=== PATIENT | male | born 1970 | race Caucasian/White ===

== ENCOUNTER 2024-01-28 15:49 | Outpatient (REF) | payer SELFPAY ==
[2024-01-28 17:35] LABS: MANUAL DIFF FLAG NO
[2024-01-28 17:47] LABS: Basophils Absolute Auto 0.1 X10*3/uL (0.0-0.2); Basophils Percent Auto 0.9 % (0-2); Eosinophils Absolute Auto 0.1 X10*3/uL (0.0-0.4); Eosinophils Percent Auto 0.7 % (0-4); Hematocrit 32.4 % (42.0-52.0); Hemoglobin 9.9 g/dl (14.0-18.0); Imm Gran Abs Auto 0.02 X10*3/uL (0.00-0.03); Imm Gran Pct Auto 0.3 % (0.0-0.4); Lymphocytes Absolute Auto 1.5 X10*3/uL (1.2-4.9); Lymphocytes Percent Auto 21.6 % (20-40); Mean Corpuscular HGB Conc 30.6 g/dl (31.0-36.0); Mean Corpuscular Hemoglobin 24.9 pg (27.0-33.0); Mean Corpuscular Volume 81.4 fL (80.0-98.0); Mean Platelet Volume 10.2 fL (9.4-12.4); Monocytes Absolute Auto 0.5 X10*3/uL (0.1-1.2); Neutrophils Absolute Auto 4.7 x10*3/uL (2.0-8.3); Neutrophils Percent Auto 69.5 % (45-73); Platelet Count 287 X10*3/uL (160-400); Red Blood Count 3.98 X10*6/uL (4.60-5.80); Red Cell Distribution Width 21.7 % (11.0-16.0); White Blood Count 6.7 X10*3/uL (4.8-10.8)
[2024-01-28 18:27] LABS: Alanine Aminotransferase 23 U/L (0-40); Albumin Level 3.5 g/dL (3.5-5.0); Alkaline Phosphatase 233 U/L (39-117); Anion Gap 11 (12-20); Aspartate Amino Transferase 64 U/L (5-37); Bilirubin Total 0.6 mg/dL (0.0-1.0); Blood Urea Nitrogen 8 mg/dL (9-16); Calcium 8.7 mg/dL (8.4-10.2); Carbon Dioxide 23 mmol/L (22-29); Chloride 107 mmol/L (96-108); Estimated Glomerular Filt Rate > 60; Glucose Random 97 mg/dL (60-115); Potassium 3.9 mmol/L (3.3-5.1); Sodium 137 mmol/L (135-145); Total Protein 8.3 g/dL (6.5-8.0)
[2024-01-29 05:43] LABS: Hepatitis A Antibody IgG Nonreactive (Nonreactive); ~Hepatitis A Antibody IgG 0.54 S/CO (0.00-0.99)
[2024-01-29 05:44] LABS: HBsAGNum1 0.42 S/CO (0.00-0.99); Hepatitis B Surface Antigen Negative (Negative); ~HepC Num1 0.26 S/CO (0.00-0.79); ~Hepatitis B Surface Antibody NONREACTIVE (Nonreactive); ~Hepatitis C Antibody Nonreactive (Nonreactive)
== END 2024-01-28 15:50 | disposition home or self-care (01) ==
LOC: HO.HHCL 15:49
PROVIDERS: Visit Provider Internal Medicine Geriatric Medicine
DX: D50.8 Other iron deficiency anemias (principal); K70.30 Alcoholic cirrhosis of liver without ascites
CPT/HCPCS: 36415; 80053; 85025; 86706; 86708; 86803; 87340

== ENCOUNTER 2024-01-29 12:14 | Outpatient (REF) | payer MEDICAID, SELFPAY ==
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
== END 2024-01-29 12:15 | disposition home or self-care (01) ==
LOC: HO.HHCX 12:14
PROVIDERS: Visit Provider Internal Medicine Geriatric Medicine
DX: S22.41XA Multiple fractures of ribs, right side, initial encounter for closed fracture (principal)
CPT/HCPCS: 71046

== ENCOUNTER 2024-03-20 10:53 | Outpatient (REF) | payer MEDICAID, SELFPAY ==
[2024-03-20 11:45] LABS: MANUAL DIFF FLAG NO
[2024-03-20 12:05] LABS: Basophils Absolute Auto 0.1 X10*3/uL (0.0-0.2); Basophils Percent Auto 0.7 % (0-2); Eosinophils Absolute Auto 0.1 X10*3/uL (0.0-0.4); Eosinophils Percent Auto 1.7 % (0-4); Hematocrit 33.3 % (42.0-52.0); Hemoglobin 10.2 g/dl (14.0-18.0); Imm Gran Abs Auto 0.03 X10*3/uL (0.00-0.03); Imm Gran Pct Auto 0.4 % (0.0-0.4); Lymphocytes Absolute Auto 1.3 X10*3/uL (1.2-4.9); Lymphocytes Percent Auto 18.7 % (20-40); Mean Corpuscular HGB Conc 30.6 g/dl (31.0-36.0); Mean Corpuscular Hemoglobin 24.5 pg (27.0-33.0); Mean Corpuscular Volume 79.9 fL (80.0-98.0); Mean Platelet Volume 12.1 fL (9.4-12.4); Monocytes Absolute Auto 0.4 X10*3/uL (0.1-1.2); Monocytes Percent Auto 6.3 % (2-11); Neutrophils Percent Auto 72.2 % (45-73); Platelet Count 231 X10*3/uL (160-400); Red Blood Count 4.17 X10*6/uL (4.60-5.80); Red Cell Distribution Width 18.5 % (11.0-16.0); White Blood Count 6.9 X10*3/uL (4.8-10.8)
--- OUTSIDE RECORDS SUMMARY | 2024-03-20 12:55 | XMS_ITS | Encounter Summary ---
Author Organization [facility] Address [address] [place] [address] Care Team Providers Care Costume Maker Name Role Phone Pcp, No Primary Care Provider Unavailabl e Encounter Details Date Type Department Care Team (Late st Contact Info) Description 03/16/2024 Scanned Document [facility] [address] [place] [place] [address] [place] [phone] Iliana MorochoDODSON, [place] [address] [place] [address] Social History Tobacco Use Types Packs/Day Years Used Date Smoking Tobacco: Never Smokeless Tobacco: Never Alcohol Use Standard Drinks/Week Comments Yes 6 (1 standard drink = 0.6 oz pur e alcohol) [facility] Utilities Answer Date Recorded In the past 12 months has [employer], gas, oil, or water [employer] threatened to shut off services in your home? No 12/17/2023 AUDIT-C Answer Date Recorded Q1: How often do you have a drink containing alcohol? 4 or more times a week 12/18/2023 Q2: How many drinks containi ng alcohol do you have on a typical day when you are drinking? 5 or 6 Q3: How often do you have si x or more drinks on one occasion? Daily or almost daily 12/18/2023 Hunger Vital Sign Answer Date Recorded Within the past 12 months, y ou worried that your food would run out before you got the money to buy more. Never true 12/17/19 24 Within the past 12 months, t he food you bought just didn't last and you didn't have money to get more. Never true 12/17/2023 PRAPARE - Transportation Answer Date Re corded In the past 12 months, has l ack of transportation kept you from medical appointments or from getting medications? No 11/26 In the past 12 months, has l ack of transportation kept you from meetings, work, or from getting things needed for daily living? No 12/17/2023 Housing Stability Vital Sign Answer Omari e Recorded In the last 12 months, was t here a time when you were not able to pay the mortgage or rent on time? No 12/17/2023 In the last 12 months, how many places have you lived? 1 12/17/2023 In the last 12 months, was t here a time when you did not have a steady place to sleep or slept in a m[facility]p (including now)? No 12/17/2023 Sex and Gender Information Value Date Recorded Sex Assigned at Male 12/16/2023 1:43 AM EDT Gender Identity Male 12/16/2023 1:43 AM EDT Sexual Orientation Heterosexual (straight) 12/15 1:43 AM EDT documented as of this encounter Plan of Treatment Not on file documented as of this encounter Visit Diagnoses Not on filedocumented in this encounter Care Teams Costume Maker Relationship Specialty Start Date End Date Pcp, No PCP - General General Medicine 12/26/23 documented as of this encounter
--- OUTSIDE RECORDS SUMMARY | 2024-03-20 12:56 | XMS_ITS | Encounter Summary ---
Author Organization [employer] Address [address] [place] [address] [address] [place] [address] Care Team Providers Care Making Line Worker Name Role Phone Name, Napoleon PALUMBO Primary Care Provider [phone] Encounter Details Date Type Department Care Team (Latest Contact Info) Description 02/27/2024 Travel Social History Tobacco Use Types Packs/Day Years Used Date Smoking Tobacco: Never Assessed Sex and Gender Information Value Date Recorded Sex Assigned at Male 01/28/2024 1:24 PM EST Legal Sex Male 1:21 PM EST Gender Identity Male 01/28/2024 1:24 PM EST Sexual Orientation Straight 01/28/2024 1: 24 PM EST documented as of this encounter Plan of Treatment Upcoming Encounters Date Type Department Care Team (Late st Contact Info) Description 03/23/2024 1:00 PM EST Office Visit [facility] PEDS [address] [place] [address] Arden Zambrano MD [address] [place] [phone] 06/10/2024 9:30 AM EDT Office Visit [facility] MEDICINE [address] [place] [phone] NameNapoleon MD [address] [place] [phone] 07/29/2024 10:00 AM EDT Immunization [facility] [address] [place] [phone] documented as of this encounter Visit Diagnoses Not on filedocumented in this encounter Care Teams Making Line Worker Relationship Specialty Start Date End Date NameNapoleon MD [address] [place] [phone] PCP - General Internal Medicine 01/28/24 documented as of this encounter
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
--- OUTSIDE RECORDS SUMMARY | 2024-03-20 12:56 | XMS_ITS | Encounter Summary ---
Author Organization [employer] Address [address] [facility] [address] [place] [address] Care Team Providers Care Horse Show Manager Name Role Phone Name, Napoleon PALUMBO Primary Care Provider [phone] Encounter Details Date Type Department Care Team (Late st Contact Info) Description 02/27/2024 10:00 AM EST Immunization [facility] MEDICINE [address] [place] [phone] Lanny Umanzor LPN Encounter for immunization Social History Tobacco Use Types Packs/Day Years Used Date Smoking Tobacco: Never Assessed Sex and Gender Information Value Date Recorded Sex Assigned at Male 01/28/2024 1:24 PM EST Legal Sex Male 1:21 PM EST Gender Identity Male 01/28/2024 1:24 PM EST Sexual Orientation Straight 01/28/2024 1: 24 PM EST documented as of this encounter Progress Notes * Lanny Umanzor LPN - 02/27/2024 10:00 AM EST Subjective Patient ID: Eligio Poole is a 53 y.o. male who presents here for 2nd, of 3 dose series, Engerix, Hepatitis B, Vaccine. Patient history and self attestation indicate no contraindication to vaccination. Pt advised of possible side effects of vaccine including fever, headache and fatigue and advisedto stay for 15 minutes monitoring post-vaccine. Pt states understanding and agrees to vaccination. Pt here for PCV 20, pneumococcal conjugate, vaccine. Pt reporting and record indicate no contraindications to vaccination. Pt advised that they could experience pain/redness/swelling @ injection sitewith a potential to experience head ache, loss of appetite, fever, joint pain, chills following vaccination. Pt states understanding and agrees to vaccination. documented in this encounter Plan of Treatment Upcoming Encounters Date Type Department Care Team (Late st Contact Info) Description 03/23/2024 1:00 PM EST Office Visit [facility] MED & PEDS [address] [place] [address] Arden Zambrano MD [address] [place] [phone] 06/10/2024 9:30 AM EDT Office Visit [address] [address] Name, MD Napoleon [address] [place] [phone] 07/29/2024 10:00 AM EDT Immunization [address] [address] documented as of this encounter Visit Diagnoses Diagnosis Encounter for immunization documented in this encounter Care Teams Horse Show Manager Relationship Specialty Start Date End Date NameNapoleon MD [address] [place] [phone] PCP - General Internal Medicine 01/28/24 documented as of this encounter
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
--- OUTSIDE RECORDS SUMMARY | 2024-03-20 12:56 | XMS_ITS | Encounter Summary ---
Author Organization [employer] Address [address] [place] [address] [address] [place] [address] Care Team Providers Care Toy Designer Name Role Phone Name, Napoleon PALUMBO Primary Care Provider [phone] Encounter Details Date Type Department Care Team (Latest Contact Info) Description 03/20/2024 Travel Social History Tobacco Use Types Packs/Day Years Used Date Smoking Tobacco: Every Day Cigarettes Smokeless Tobacco: Current Sex and Gender Information Value Date Recorded Sex Assigned at Male 01/28/2024 1:24 PM EST Legal Sex Male 1:21 PM EST Gender Identity Male 01/28/2024 1:24 PM EST Sexual Orientation Straight 01/28/2024 1: 24 PM EST documented as of this encounter Plan of Treatment Upcoming Encounters Date Type Department Care Team (Late st Contact Info) Description 03/23/2024 1:00 PM EST Office Visit [facility] CHC MED & PEDS [address] [place] [address] Arden Zambrano MD [address] [place] [address] 06/10/2024 9:30 AM EDT Office Visit [facility] MEDICINE [address] [place] [address] Name, MD Napoleon [address] [place] [phone] 07/29/2024 10:00 AM EDT Immunization [address] [address] documented as of this encounter Visit Diagnoses Not on filedocumented in this encounter Care Teams Toy Designer Relationship Specialty Start Date End Date Name, MD Napoleon [address] [place] [phone] PCP - General Internal Medicine 01/28/24 documented as of this encounter
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
--- OUTSIDE RECORDS SUMMARY | 2024-03-20 12:56 | XMS_ITS | Encounter Summary ---
Author Organization [employer] Address [address] [place] [address] [address] [place] [address] Care Team Providers Care Music Researcher Name Role Phone Name, Napoleon PALUMBO Primary Care Provider [phone] Reason for Visit * Reason Comments Pre-visit Planning Pre-visit planning - LVM Encounter Details Date Type Department Care Team (Late Contact Info) Description 03/11/2024 Patient Outreach [facility] [address] [place], [place] [phone] Name, MD Napoleon [address] [place] [phone] Pre-visit Planning (Pre-visit planning - LVM ) Social History Tobacco Use Types Packs/Day Years Used Date Smoking Tobacco: Never Assessed Sex and Gender Information Value Date Recorded Sex Assigned at Male 01/28/2024 1:24 PM EST Legal Sex Male 1:21 PM EST Gender Identity Male 01/28/2024 1:24 PM EST Sexual Orientation Straight 01/28/2024 1: 24 PM EST documented as of this encounter Progress Notes * Raissa Perez - 03/11/2024 11:49 AM EST NATALIA Pendleton placed outbound call to patient to complete pre-visit planning. No answer at this time. Patient name and were not confirmed. CC left voicemail requesting return call. Direct contact information provided. documented in this encounter Plan of Treatment Upcoming Encounters Date Type Department Care Team ([facility] Contact Info) Description 03/23/2024 1:00 PM EST Office Visit [facility] [address] [place], [place] [phone] Arden Zambrano MD [address] [place] [address] 06/10/2024 9:30 AM EDT Office Visit [facility] [address] [place] [phone] Name, MD Napoleon [address] [place] [phone] 07/29/2024 10:00 AM EDT Immunization [facility] [address] [place] [address] documented as of this encounter Visit Diagnoses Not on filedocumented in this encounter Care Teams Music Researcher Relationship Specialty Start Date End Date Name, MD Napoleon [address] [place] [phone] PCP - General Internal Medicine 01/28/24 documented as of this encounter
--- OUTSIDE RECORDS SUMMARY | 2024-03-20 12:56 | XMS_ITS | Encounter Summary ---
Author Organization [employer] Address [address] [place] [address] [address] [place] [address] Care Team Providers Care Child And Youth Program Assistant Name Role Phone Name, Napoleon PALUMBO Primary Care Provider [phone] Encounter Details Date Type Department Care Team (Latest Contact Info) Description 03/02/2024 Travel Social History Tobacco Use Types Packs/Day [...] Description 03/23/2024 1:00 PM EST Office Visit [facility] [address] [place] [address] Arden Zambrano MD [address] [place] [address] 06/10/2024 9:30 AM EDT Office Visit [facility] [address] [place] [address] NameNapoleon MD [address] [place] [address] 07/29/2024 10:00 AM EDT Immunization [facility] [address] [place] [address] documented as of this encounter Visit Diagnoses Not on filedocumented in this encounter Care Teams Child And Youth Program Assistant Relationship Specialty Start Date End Date NameNapoleon MD [address] [place] [address] PCP - General Internal Medicine 01/28/24 documented as of this encounter
--- OUTSIDE RECORDS SUMMARY | 2024-03-20 12:56 | XMS_ITS | Encounter Summary ---
Author Organization [facility] Address [address] [place] [address] Care Team Providers Care R&D Lab Technician Name Role Phone Pcp, No Primary Care Provider Unavailabl e Encounter Details Date Type Department Care Team (Late st Contact Info) Description 03/16/2024 Scanned Document [facility] [address] [facility] [place] [address] [place] [phone] [place]iana [place] [address] [place] [address] Social History Tobacco Use Types Packs/Day Years Used Date Smoking Tobacco: Never Smokeless Tobacco: Never Alcohol Use Standard Drinks/Week Comments Yes 6 (1 standard drink = 0.6 oz pur e alcohol) [facility] Utilities Answer Date Recorded In the past 12 months has [employer], gas, oil, or water [employer] threatened to shut off services in your [...] place to sleep or slept in a jail (including now)? No 12/17/2023 Sex and Gender Information Value Date Recorded Sex Assigned at Male 12/16/2023 1:43 AM EDT Gender Identity Male 12/16/2023 1:43 AM EDT Sexual Orientation Heterosexual (straight) 12/15 1:43 AM EDT documented as of this encounter Plan of Treatment Not on file documented as of this encounter Visit Diagnoses Not on filedocumented in this encounter Care Teams R&D Lab Technician Relationship Specialty Start Date End Date Pcp, No PCP - General General Medicine 12/26/23 documented as of this encounter
[2024-03-20 13:05] LABS: Folate 10.7 ng/mL (> or = 4.0); Vitamin B12 637 pg/mL (200-900)
[2024-03-20 15:34] LABS: Alanine Aminotransferase 19 U/L (0-40); Albumin Level 3.4 g/dL (3.5-5.0); Alkaline Phosphatase 150 U/L (39-117); Anion Gap 12 (12-20); Aspartate Amino Transferase 32 U/L (5-37); Bilirubin Total 0.5 mg/dL (0.0-1.0); Blood Urea Nitrogen 8 mg/dL (9-16); Calcium 8.4 mg/dL (8.4-10.2); Carbon Dioxide 21 mmol/L (22-29); Chloride 115 mmol/L (96-108); Cholesterol 137 mg/dL (<200); Estimated Glomerular Filt Rate > 60; Glucose Random 94 mg/dL (60-115); HDL Cholesterol 28 mg/dL (>40); LDL Cholesterol Calculated 85 mg/dL (<100); Potassium 3.5 mmol/L (3.3-5.1); Sodium 144 mmol/L (135-145); Total Protein 7.6 g/dL (6.5-8.0); Triglycerides 123 mg/dL (<150)
[2024-03-31 05:34] LABS: Vitamin B1 <6 nmol/L (8-30)
== END 2024-03-20 10:54 | disposition home or self-care (01) ==
LOC: HO.HHCL 10:53
PROVIDERS: Visit Provider Internal Medicine Geriatric Medicine
DX: Z13.220 Encounter for screening for lipoid disorders (principal); K70.30 Alcoholic cirrhosis of liver without ascites; F10.10 Alcohol abuse, uncomplicated; Z72.0 Tobacco use
CPT/HCPCS: 36415; 80053; 80061; 82607; 82746; 84425; 85025